=== PATIENT | male | born 1940 | race Caucasian/White ===

== ENCOUNTER 2020-05-05 17:50 | Emergency (ER) | payer MEDICARE, BC ==
--- NOTE | 2020-05-05 18:42 | CR ---
[id number] RAD/RAD Hand Right 3V EXAM: RAD Hand Right 3V CLINICAL DATA: TRAUMA COMPARISON: NO PREVIOUS SIMILAR EXAM IS AVAILABLE. FINDINGS: There is a compound injury of the distal right fifth phalanx There is soft tissue injury of the fourth and fifth fingers There is a metallic density at the level of the right fifth metacarpal phalangeal joint There is a chip fracture involving the distal aspect of the dorsal right fourth mid phalanx There is soft tissue injury here. There is soft tissue injury also of the distal right second finger without obvious underlying bony involvement IMPRESSION: COMPOUND INJURIES OF RIGHT FOURTH MID PHALANX AND RIGHT FIFTH DISTAL PHALANX RADIO OPAQUE FOREIGN BODY DESCRIBED PRE-EXISTING DEGENERATIVE CHANGES Andrew Hamilton MD 05/05/20 [id number] Thank you for allowing us to participate in the care of your patient.
--- NOTE | 2020-05-05 20:14 | EDM.PDOC ---
ED HPI GENERAL MEDICAL PROBLEM - General Chief Complaint: Upper Extremity Injury/Pain Stated Complaint: RIGHT HAND INJURY Time Seen by Provider: 05/05/20 17:59 Source of Information: Reports: Patient History Limitations: Reports: No Limitations - History of Present Illness INITIAL COMMENTS - FREE TEXT/NARRATIVE: Presents right hand severe lacerations to his distal fingertips from a table saw which occurred approximately less than 1 hour prior to arrival. Tetanus shots last updated 3 years ago he has trouble moving his fingers due to lacerations to the distal tips. Hemostasis achieved with direct pressure however when pressure is on applied it continues to bleed. Patient denies any other injury. Right Hand Pain Score (Numeric/FACES): 3 - Related Data Allergies Allergy/AdvReac Type Severity Reaction Status Date / Time Sulfa (Sulfonamide Allergy Rash Verified 05/05/20 19:06 Antibiotics) Home Meds: Home Meds Aspirin 81 mg PO DAILY 05/05/20 [History] Calcium Carbonate/Vitamin D3 [Caltrate 600 Plus D3 Tablet] 1 tab PO DAILY 05/05/20 [History] Fish Oil/[place]-3 Fatty Acids [Fish Oil 1,000 MG] 1 each PO DAILY 05/05/20 [History] Social & Family History - Tobacco Use Tobacco Use Status *Q: Never Tobacco User - Caffeine Use Caffeine Use: Reports: Coffee, Soda - Recreational Drug Use Recreational Drug Use: No Review of Systems - Review of Systems Review Of Systems: Comprehensive ROS is negative, except as noted in HPI. Skin: Reports: Wound ED EXAM, GENERAL - Physical Exam Exam: See Below Exam Limited By: No Limitations General Appearance: Alert, WD/WN Extremities: Other (extensive stellate laceration involving his right hand distal fingers on the dorsal aspect. finger tips are intact. ) Course - Vital Signs Last Recorded V/S: Last Vital Signs Temp 98.9 F 05/05/20 18:23 Pulse 87 05/05/20 18:23 Resp 16 05/05/20 18:23 BP 161/101 H 05/05/20 18:23 Pulse Ox 95 05/05/20 18:23 - Re-Assessments/Exams Free Text/Narrative Re-Assessment/Exam: 05/05/20 21:59 Patient is told me he is an established patient [facility] has been there before. Patient request to go to [facility] to be further evaluated. Due to the loss of movement to his fingers on the right hand distal tips extensive lacerations involve the tips of his distal right hand patient was transferred for further evaluation management for this. Departure - Departure Time of Disposition: 19:20 Disposition: DC/Tfer to Acute Hospital 02 Condition: Serious Clinical Impression: Finger laceration with complication Qualifiers: Encounter type: initial encounter Qualified Code(s): S61.219A - Laceration without foreign body of unspecified finger without damage to nail, initial encounter - Discharge Information *PRESCRIPTION DRUG MONITORING PROGRAM REVIEWED*: No *COPY OF PRESCRIPTION DRUG MONITORING REPORT IN PATIENT SANTOS: No Referrals: Sunitha German PA-C [Primary Care Provider] - Forms: ED Department Discharge Additional Instructions: GO STRAIGHT TO [facility] IN [place], [place] FINGERS CLEANSED WITH BETADINE AND WET TO DRY DRESSING APPLIED. TETANUS 3 YEARS AGO Sepsis Event Note (ED) - Evaluation Sepsis Screening Result: No Definite Risk - Focused Exam Vital Signs: Vital Signs Temp Pulse Resp BP Pulse Ox 05/05/20 18:23 98.9 F 87 16 161/101 H 95 05/05/20 18:15 98.9 F 87 18 158/99 H 98
== END 2020-05-05 18:45 ==
LOC: KA.ED 17:50
DX: S61.210A Laceration without foreign body of right index finger without damage to nail, initial encounter (principal); S61.212A Laceration without foreign body of right middle finger without damage to nail, initial encounter; S61.214A Laceration without foreign body of right ring finger without damage to nail, initial encounter; S61.216A Laceration without foreign body of right little finger without damage to nail, initial encounter; Z88.2 Allergy status to sulfonamides; Z79.82 Long term (current) use of aspirin; W31.2XXA Contact with powered woodworking and forming machines, initial encounter
CPT/HCPCS: 73130-RT; 99283; 99284